=== PATIENT | female | born 2000 | race Hispanic/Latino ===

== ENCOUNTER 2021-11-04 02:44 | Inpatient (IN) | payer MEDICAID, OTHER, SELFPAY ==
[2021-11-04] MEDS ORDERED: Promethazine HCl 25 MG/ML VIAL IM PRN ×2 (03:37→09:16)
[2021-11-04] MEDS ORDERED: Ibuprofen 800 MG TAB PO PRN (03:37)
[2021-11-04] MEDS ORDERED: Ondansetron PF 4 MG/2 ML Vial IVP PRN ×2 (03:37→09:16)
[2021-11-04] MEDS ORDERED: Lidocaine 1% (PF) 30 ML VIAL SC PRN (03:37)
[2021-11-04] MEDS ORDERED: hydrALAZINE 20 MG/ML VIAL SLOW IVP PRN ×2 (03:37→09:16)
[2021-11-04 03:40] VITALS: BMI 22.3
[2021-11-04 03:49] LABS: Hemoglobin 11.3 g/dL (12.0-15.5); Mean Corpuscular HGB CONC 33.1 g/dL (32.0-36.0); Mean Corpuscular Hemoglobin 26.6 pg (27.0-33.0); Mean Corpuscular Volume 80.2 fl (81.6-98.3); Mean Platelet Volume 10.5 fl (7.4-10.4); Platelet Count 295 10x3/uL (150-450); RBC Distribution Width 13.4 % (11.5-14.5); Red Blood Cell (RBC) Count 4.25 10x6/uL (3.90-5.03); White Blood Cell (WBC) Count 12.8 10x3/uL (3.5-10.5)
[2021-11-04] MEDS ORDERED: Penicillin G Potassium 5 MILL.UNITS in Sodium Chloride 0.9% 100 ML IVPB SCH (04:00)
[2021-11-04 04:17] LABS: Hep B Surf Ag Non-Reactive S/CO (NonReactive); Syphilis Antibody Nonreactive (Nonreactive); Syphilis Antibody Index 0.07 S/CO (<1.00 Non-Reactive)
[2021-11-04 05:26] LABS: SARS-CoV-2 NAA Rapid Test Not Detected (NotDetected)
[2021-11-04] MEDS ORDERED: Misoprostol 200 MCG TAB ONE (05:30)
[2021-11-04] MEDS ORDERED: Methylergonovine 0.2 MG/ML VIAL ONE (05:31)
[2021-11-04] MEDS: NS w/ Oxytocin 30 units 500 ML IV SCH ×2 (06:33→06:34)
[2021-11-04] MEDS ORDERED: Methylergonovine 0.2 MG/ML VIAL IM SCH (07:00)
[2021-11-04] MEDS ORDERED: Ferrous Sulfate 325 MG TAB PO SCH ×2 (08:00→09:30)
[2021-11-04] MEDS ORDERED: Penicillin G 2.5 MILL.units 2.5 MILL.UNITS in Premix Bag 1 BAG IVPB SCH (08:00)
[2021-11-04] MEDS ORDERED: NS w/ Oxytocin 30 units 500 ML IV SCH (09:16)
[2021-11-04] MEDS ORDERED: Benzocaine-Menthol 82.5 ML CAN TOP PRN (09:16)
[2021-11-04] MEDS ORDERED: Milk Of Magnesia 30 ML UDCUP PO PRN (09:16)
[2021-11-04] MEDS ORDERED: HYDROcodone/Acetaminophen 5/325 mg Tablet PO PRN ×2 (09:16)
[2021-11-04] MEDS ORDERED: Bisacodyl 10 MG SUPP PR PRN (09:16)
[2021-11-04] MEDS ORDERED: Boostrix 0.5 ML (Tdap) VIAL IM ONE (09:16)
[2021-11-04] MEDS ORDERED: Lanolin Ointment 7 GM TUBE TOP PRN (09:16)
[2021-11-04] MEDS: Prenatal Vitamin 1 TAB PO SCH (11:04)
[2021-11-04] MEDS: Docusate 100 MG CAP PO SCH ×2 (11:04→21:11)
[2021-11-04] MEDS: Ibuprofen 800 MG TAB PO SCH ×2 (14:10→21:11)
[2021-11-04] MEDS ORDERED: Lactated Ringer's 1,000 ML IV SCH (17:00)
[2021-11-04] MEDS: Ferrous Sulfate 325 MG TAB PO SCH (18:13)
[2021-11-05] MEDS: Ibuprofen 800 MG TAB PO SCH ×3 (05:09→21:35)
[2021-11-05] MEDS: Ferrous Sulfate 325 MG TAB PO SCH ×2 (09:19→15:32)
[2021-11-05] MEDS: Docusate 100 MG CAP PO SCH ×2 (10:19→21:36)
[2021-11-05] MEDS: Prenatal Vitamin 1 TAB PO SCH (10:19)
[2021-11-06] MEDS: Ibuprofen 800 MG TAB PO SCH (05:52)
[2021-11-06 07:31] VITALS: BP 90/51; TEMP 97.7
[2021-11-06] MEDS: Prenatal Vitamin 1 TAB PO SCH (07:54)
[2021-11-06] MEDS: Docusate 100 MG CAP PO SCH (07:54)
[2021-11-06] MEDS: Ferrous Sulfate 325 MG TAB PO SCH (07:56)
== END 2021-11-06 11:45 | disposition home or self-care (01) | DRG 807 ==
LOC: CSHLD/OP 02:44 → CSHLD 03:34 → CSHPP 08:50
PROVIDERS: ADMIT Family Medicine; ATTEND Family Medicine
PROC: 10E0XZZ Delivery of Products of Conception, External Approach (ICD-10-PCS; principal; 2021-11-04)
PROC: 0KQM0ZZ Repair Perineum Muscle, Open Approach (ICD-10-PCS; 2021-11-04)
DX: O99.824 Streptococcus B carrier state complicating childbirth (principal); Z37.0 Single live birth; Z20.822 Contact with and (suspected) exposure to COVID-19; Z3A.39 39 weeks gestation of pregnancy; Z79.899 Other long term (current) drug therapy; O70.1 Second degree perineal laceration during delivery
CPT/HCPCS: 36415; 85027; 86780; 86850; 86900; 86901; 87340; 99285; J2001; J2210; J2540; J2590; J3490; J7120; U0002